=== PATIENT | male | born 1955 | race Caucasian/White ===

== ENCOUNTER → 2019-05-01 | Outpatient (CLI) | payer BC, OTHER ==
[~2019-05-01] MED LIST: HOLD METFORMIN - RECEIVED CONTRAST 20 ML VIAL IV SCH; IOHEXOL 350 MG/ML 100 ML (OMNIPAQUE 350) VIAL IV ONE; NS 100 ML (IVPB) BAG IV ONE
--- NOTE | 2019-05-01 15:04 | Diagnostic Imaging Report ---
PROCEDURE: CT head with and without contrast. TECHNIQUE: Multiple contiguous axial images were obtained through the brain before and after the administration of intravenous contrast. Auto Exposure Controls were utilized during the CT exam to meet ALARA standards for radiation dose reduction. INDICATION: Weakness and dysphasia. COMPARISON: No prior studies are available for comparison. FINDINGS: The ventricles and sulci are appropriate for the patient's age. No sulcal effacement or midline shift is seen. No acute intra-axial or extra-axial hemorrhage is detected. 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 Cisterns are patent. Visualized paranasal sinuses are clear. No abnormal enhancement following contrast administration is identified. IMPRESSION: Essentially unremarkable pre-and postcontrast CT of the brain apart from a probable old lacunar infarct in left thalamus. No acute features are seen. Dictated by: Dictated on workstation # [id number]
== END ==
LOC: RAD 14:26
PROVIDERS: ATTEND Nurse Practitioner Community Health
DX: R47.02 Dysphasia (principal); R29.810 Facial weakness; R53.1 Weakness
CPT/HCPCS: 70470

== ENCOUNTER 2020-12-08 13:30 | Inpatient (IN) | payer MEDICARE ==
[~2020-12-08] VITALS: Ht 187.9 cm; Wt 99.5 kg
--- NOTE | 2020-12-08 13:48 | ED Lower Extremity ---
General Stated Complaint: L FOOT ULCERS Source: patient Exam Limitations: no limitations History of Present Illness Date Seen by Provider: Dec 08, 2020 Time Seen by Provider: 13:46 Initial Comments To ER with ulcers to both of his feet with drainage that has increased "100%" over the past few weeks. No fevers or chills. Follows with [facility]. Has not seen anyone for quite some time though. He has been out of his blood pressure medication for about 2 months as well. He believes he "just needs some Keflex". Onset: just prior to arrival Severity: moderate Pain/Injury Location: left foot Method of Injury: unknown Modifying Factors: Worse With Movement Allergies and Home Medications Allergies Coded Allergies: No Allergy Information Available (Unverified , 05/01/19) Patient Home Medication List Home Medication List Reviewed: Yes Review of Systems Constitutional: see HPI; No chills, No fever EENTM: see HPI Respiratory: no symptoms reported Cardiovascular: no symptoms reported Genitourinary: no symptoms reported Musculoskeletal: see HPI Skin: no symptoms reported Psychiatric/Neurological: No Symptoms Reported Physical Exam Vital Signs Vital Signs - First Documented 12/08/20 13:36 Temp 37.3 Pulse 92 Resp 18 B/P (MAP) 207/120 (149) Pulse Ox 97 O2 Delivery Room Air Capillary Refill : Height, Weight, BMI Height: '" Weight: lbs. oz. kg; BMI Method: General Appearance: WD/WN, no apparent distress Respiratory: no respiratory distress, no accessory muscle use Hips: bilateral hip non-tender, bilateral hip normal inspection, bilateral hip normal range of motion Legs: bilateral leg non-tender, bilateral leg normal inspection, bilateral leg normal range of motion Knees: bilateral knee non-tender, bilateral knee normal inspection, bilateral knee normal range of motion Ankles: bilateral ankle swelling (Bilateral lower extremity thickening of skin, scaling. He has Unna boots on each foot that have been there for quite some time. Incredibly foul-smelling feet. The plantar surface left foot over the arch of the foot has a fissure from the rolled up compression stockings with depth down to plantar fascia) Feet: bilateral foot swelling Neurologic/Psychiatric: alert, normal mood/affect, oriented x 3 Skin: normal color, warm/dry Progress/Results/Core Measures Results/Orders Lab Results Laboratory Tests Test 12/08/20 13:42 12/08/20 13:53 Range/Units Glucometer 173 H 70-110 MG/DL White Blood Count 12.5 H 4.3-11.0 10^3/uL Red Blood Count 3.96 L 4.30-5.52 10^6/uL Hemoglobin 11.8 L 13.3-17.7 g/dL Hematocrit 36 L 40-54 % Mean Corpuscular Volume 90 80-99 fL Mean Corpuscular Hemoglobin 30 25-34 pg Mean Corpuscular Hemoglobin Concent 33 32-36 g/dL Red Cell Distribution Width 14.3 10.0-14.5 % Platelet Count 283 130-400 10^3/uL Mean Platelet Volume 9.8 9.0-12.2 fL Immature Granulocyte % (Auto) 1 % Neutrophils (%) (Auto) 76 H 42-75 % Lymphocytes (%) (Auto) 12 12-44 % Monocytes (%) (Auto) 8 0-12 % Eosinophils (%) (Auto) 3 0-10 % Basophils (%) (Auto) 1 0-10 % Neutrophils # (Auto) 9.6 H 1.8-7.8 X 10^3 Lymphocytes # (Auto) 1.6 1.0-4.0 X 10^3 Monocytes # (Auto) 1.0 0.0-1.0 X 10^3 Eosinophils # (Auto) 0.3 0.0-0.3 10^3/uL Basophils # (Auto) 0.1 0.0-0.1 10^3/uL Immature Granulocyte # (Auto) 0.1 0.0-0.1 10^3/uL Prothrombin Time 13.3 12.2-14.7 SEC INR Comment 1.0 0.8-1.4 Sodium Level 140 135-145 MMOL/L Potassium Level 3.7 3.6-5.0 MMOL/L Chloride Level 107 98-107 MMOL/L Carbon Dioxide Level 24 21-32 MMOL/L Anion Gap 9 5-14 MMOL/L Blood Urea Nitrogen 21 H 7-18 MG/DL Creatinine 1.23 0.60-1.30 MG/DL Estimat Glomerular Filtration Rate 59 BUN/Creatinine Ratio 17 Glucose Level 173 H 70-105 MG/DL Lactic Acid Level 1.71 0.50-2.00 MMOL/L Calcium Level 9.4 8.5-10.1 MG/DL Corrected Calcium 9.7 8.5-10.1 MG/DL Total Bilirubin 0.3 0.1-1.0 MG/DL Aspartate Amino Transf (AST/SGOT) 21 5-34 U/L Alanine Aminotransferase (ALT/SGPT) 25 0-55 U/L Alkaline Phosphatase 72 40-136 U/L B-Type Natriuretic Peptide 36.8 <100.0 PG/ML Total Protein 7.8 6.4-8.2 GM/DL Albumin 3.6 3.2-4.5 GM/DL My Orders Orders - CHANELL ONTIVEROS [employer] Cbc With Automated Diff (12/08/20 13:43) Comprehensive Metabolic Panel (12/08/20 13:43) Protime With Inr (12/08/20 13:43) Ua Culture If Indicated (12/08/20 13:43) Blood Culture (12/08/20 13:43) Lactic Acid Analyzer (12/08/20 13:43) BNP (12/08/20 13:43) Chest 1 View, Ap/Pa Only (12/08/20 13:43) Labetalol Injection (Normodyne Injection (12/08/20 14:00) Foot, Bilateral, 2 Views (12/08/20 13:43) Clonidine Tablet (Catapres Tablet) (12/08/20 15:00) Zosyn 4.5 Gm (One Time Dose) (12/08/20 15:00) Vital Signs/I&O 12/08/20 12/08/20 13:36 14:35 Temp 37.3 Pulse 92 Resp 18 B/P (MAP) 207/120 (149) 188/94 (125) Pulse Ox 97 O2 Delivery Room Air Departure Communication (Admissions) Time/Spoke to Admitting Phy: 14:[address] Mcdermott who agrees to admit. We will consult surgery. I spoke with Dr. Toney from surgery he agrees to consult. I also spoke with Dr. Garcia from wound care who agrees to consult for the right foot which does not seem to be surgical at this point. Impression Primary Impression: Wound of foot Additional Impression: Noncompliance Disposition: ADMITTED INPATIENT Condition: Stable Admissions Decision to Admit Reason: Admit from ER (General) Decision to Admit/Date: Dec 08, 2020 Time/Decision to Admit Time: 14:53 Departure-Patient Inst. Referrals: NO,LOCAL PHYSICIAN (PCP/Family) Primary Care Physician CHANELL ONTIVEROS APRN Dec 08, 2020 13:48
[2020-12-08] MEDS ORDERED: LABETALOL HCL 20 MG/4 ML VIAL IV ONE (14:00)
[2020-12-08 14:08] LABS: BASOPHILS # (AUTO) 0.1 10^3/uL (0.0-0.1); BASOPHILS % (AUTO) 1 % (0-10); EOSINOPHILS # (AUTO) 0.3 10^3/uL (0.0-0.3); EOSINOPHILS % (AUTO) 3 % (0-10); HEMATOCRIT 36 % (40-54); HEMOGLOBIN 11.8 g/dL (13.3-17.7); LYMPHOCYTES # (AUTO) 1.6 X 10^3 (1.0-4.0); LYMPHOCYTES % (AUTO) 12 % (12-44); MEAN CORPUSCULAR HEMOGLOBIN 30 pg (25-34); MEAN CORPUSCULAR HGB CONC 33 g/dL (32-36); MEAN CORPUSCULAR VOLUME 90 fL (80-99); MEAN PLATELET VOLUME 9.8 fL (9.0-12.2); MONOCYTES % (AUTO) 8 % (0-12); NEUTROPHILS # (AUTO) 9.6 X 10^3 (1.8-7.8); NEUTROPHILS % (AUTO) 76 % (42-75); PLATELET COUNT 283 10^3/uL (130-400); WHITE BLOOD COUNT 12.5 10^3/uL (4.3-11.0)
[2020-12-08 14:19] LABS: PROTHROMBIN TIME PATIENT 13.3 SEC (12.2-14.7)
[2020-12-08 14:27] LABS: ALBUMIN 3.6 GM/DL (3.2-4.5); BILIRUBIN,TOTAL 0.3 MG/DL (0.1-1.0); CALCIUM 9.4 MG/DL (8.5-10.1); CREATININE SERUM 1.23 MG/DL (0.60-1.30); POTASSIUM 3.7 MMOL/L (3.6-5.0); TOTAL PROTEIN 7.8 GM/DL (6.4-8.2)
--- NOTE | 2020-12-08 14:52 | Diagnostic Imaging Report ---
INDICATION: Foot wounds. EXAMINATION: Frontal chest obtained at 2:27 PM. FINDINGS: The heart is borderline in size. There is mild central vascular prominence. There is no focal consolidation, pneumothorax, or pleural fluid. IMPRESSION: Borderline heart size with mild central vascular prominence. No focal infiltrate, pneumothorax, or pleural fluid. Dictated by: Dictated on workstation # [id number]
[2020-12-08] MEDS ORDERED: cloNIDine 0.1 MG (CATAPRES) TAB PO ONE (15:00)
[2020-12-08] MEDS ORDERED: PIPERACILLIN/TAZOBACTAM (BULK) 4.5 GM in NS (IVPB) 100 ML IV ONE (15:00)
[2020-12-08 15:07] LABS: BILIRUBIN,URINE NEGATIVE (NEGATIVE); CLARITY,URINE CLEAR; COLOR,URINE YELLOW; GLUCOSE, URINE (UA) NEGATIVE (NEGATIVE); KETONES,URINE NEGATIVE (NEGATIVE); LEUKOCYTE ESTERASE ,URINE TRACE (NEGATIVE); NITRITE,URINE NEGATIVE (NEGATIVE); PROTEIN,URINE TRACE (NEGATIVE)
--- NOTE | 2020-12-08 15:17 | Diagnostic Imaging Report ---
HISTORY: Bilateral feet wounds. COMPARISON: None. TECHNIQUE: Two views of the bilateral feet. FINDINGS: Right foot: There is marked soft tissue swelling about the right foot. There is diffuse osteopenia. Osteopenia appears marked at the fourth and fifth metatarsal heads. No definite cortical erosion is seen. No fracture is seen. Left foot: There is marked soft tissue swelling about the left foot as well, particularly at the dorsum of the forefoot. There is generalized osteopenia, particularly at the metatarsal heads. Questionable erosive changes at the fourth metatarsal head. No fracture is seen. Alignment appears normal. IMPRESSION: 1. Marked soft tissue swelling in the feet bilaterally with diffuse osteopenia. Suspect erosive changes at the fourth metatarsal head which would be concerning for osteomyelitis. MRI would be more sensitive to evaluate for osteomyelitis in the bilateral feet. Dictated by: Dictated on workstation # [id number]
[2020-12-08 15:22] LABS: BACTERIA,URINE NEGATIVE /HPF; RBC,URINE RARE /HPF
[2020-12-08] MEDS ORDERED: LACTATED RINGERS 1,000 ML IV ONE (15:27)
[2020-12-08 15:54] VITALS: BP 177/84
[2020-12-08] MEDS ORDERED: CATHETER FLUSH 10 ML SYR IV PRN (16:00)
[2020-12-08] MEDS ORDERED: VANCOMYCIN 2000 MG/NS 500 ML IVPB IV NR ×2 (16:00)
[2020-12-08] MEDS: LACTATED RINGERS 1,000 ML IV SCH (16:02)
[2020-12-08] MEDS: inSUlin ASPART (NovoLOG) 1 UNIT/0.01 ML (CHARGE PER UNIT) SC SCH ×2 (17:06→20:41)
[2020-12-08] MEDS ORDERED: HYDROcodone/APAP 5 MG/325 MG (LORTAB) TAB PO PRN (17:15)
[2020-12-08] MEDS ORDERED: FLU QUAD HIGH DOSE 240 MCG/0.7 ML 2020-21 (FLUZONE) IM ONE (17:30)
--- NOTE | 2020-12-08 19:22 | Consultation - Surgery ---
History of Present Illness History of Present Illness Patient Consulted On(dianna/time) 12/08/20 19:15 Time Seen by Provider: 16:08 History of Present Illness Surgery asked to consult regarding foot ulcer. HPI per ED: To ER with ulcers to both of his feet with drainage that has increased "100%" over the past few weeks. No fevers or chills. Follows with [facility]. Has not seen anyone for quite some time though. He has been out of his blood pressure medication for about 2 months as well. He believes he "just needs some Keflex". Onset: just prior to arrival Severity: moderate Pain/Injury Location: left foot Method of Injury: unknown Modifying Factors: Worse With Movement Pt states that it hurts to walk on in it and this is the worst it has ever looked. He states he doesn't walk much, but a little. He had a compression sock on his foot that he had rolled up and that is what caused the cut on his foot. He has a hx of lymphedema and states he has been dealing with "little ulcers on my legs for years". He rates his pain as 3 out of 10, but much worse if he tries to walk on it. Allergies and Home Medications Allergies Coded Allergies: No Allergy Information Available (Unverified , 12/08/20) Patient Home Medication List Home Medication List Reviewed: Yes Past Cszrplx-Zmhqeb-Gvygzr Hx Patient Social History Smoking Status: Current Everyday Smoker Alcohol Use?: No Have you traveled recently?: No Surgeries History of Surgeries: Yes Surgeries: Orthopedic Respiratory History of Respiratory Disorde: No Cardiovascular History of Cardiac Disorders: Yes Cardiac Disorders: Hypertension Neurological History of Neurological Disord: No Genitourinary History of Genitourinary Disor: No Gastrointestinal History of Gastrointestinal Di: No Musculoskeletal History of Musculoskeletal Dis: Yes (lymphedema, chronic venous stasis) Endocrine History of Endocrine Disorders: Yes Endocrine Disorders: Diabetes, Insulin dep HEENT History of HEENT Disorders: No Loss of Vision: Denies Hearing Impairment: Denies Cancer History of Cancer: No Psychosocial History of Psychiatric Problem: No Integumentary History of Skin or Integumenta: No Family Medical History Significant Family History: Diabetes (both parents) Review of Systems-General Constitutional: No chills, No diaphoresis; malaise, weakness EENTM: No blurred vision, No double vision, No mouth pain, No mouth swelling, No nose congestion Respiratory: No cough, No dyspnea on exertion, No hemoptysis, No short of breath Cardiovascular: No chest pain Gastrointestinal: No abdominal pain, No jaundice, No nausea, No vomiting Genitourinary: No dysuria, No frequency Musculoskeletal: back pain, joint pain, joint swelling, muscle pain, muscle stiffness, muscle cramps, muscle weakness Skin: dryness, lesions Psychiatric/Neurological: Denies Anxiety, Denies Depressed, Denies Seizure, Denies Tremors Other pt denies any hx of abnormal bleeding or bruising Physical Exam-General Problems Physical Exam Vital Signs Vital Signs - First Documented 12/08/20 13:36 Temp 37.3 Pulse 92 Resp 18 B/P (MAP) 207/120 (149) Pulse Ox 97 O2 Delivery Room Air Capillary Refill : Less Than 3 Seconds General Appearance: no apparent distress, obese Eyes: Bilateral Eye PERRL, Bilateral Eye EOMI HEENT: pharynx normal; No scleral icterus (R), No scleral icterus (L), No pale conjunctivae (R), No pale conjunctivae (L) Neck: supple Respiratory: lungs clear, normal breath sounds, no respiratory distress, no accessory muscle use Cardiovascular: regular rate, rhythm, no murmur Gastrointestinal: non tender, soft, no organomegaly, no pulsatile mass Rectal: deferred Extremities: other (B/L Lymphedema with chronic skin changes, thickend bark- like skin from below knees through feet, right leg above ankle has open ulcers. Right foot is twice normal size. Left foot has a laceration, straight line going through plantar and medial aspect,that looks like it was done with wire. It also looks chronic.) Neurologic/Psychiatric: alert, normal mood/affect, oriented x 3 Skin: normal color, warm/dry Lymphatic: no adenopathy (neck, axilla or groin) Data Review Labs Laboratory Tests 12/08/20 13:42: Glucometer 173H 12/08/20 13:53: White Blood Count 12.5H, Red Blood Count 3.96L, Hemoglobin 11.8L, Hematocrit 36L , Mean Corpuscular Volume 90, Mean Corpuscular Hemoglobin 30, Mean Corpuscular Hemoglobin Concent 33, Red Cell Distribution Width 14.3, Platelet Count 283, Mean Platelet Volume 9.8, Immature Granulocyte % (Auto) 1, Neutrophils (%) (Auto) 76H, Lymphocytes (%) (Auto) 12, Monocytes (%) (Auto) 8, Eosinophils (%) (Auto) 3, Basophils (%) (Auto) 1, Neutrophils # (Auto) 9.6H, Lymphocytes # (Auto) 1.6, Monocytes # (Auto) 1.0, Eosinophils # (Auto) 0.3, Basophils # (Auto) 0.1, Immature Granulocyte # (Auto) 0.1, Prothrombin Time 13.3, INR Comment 1.0, Sodium Level 140, Potassium Level 3.7, Chloride Level 107, Carbon Dioxide Level 24, Anion Gap 9, Blood Urea Nitrogen 21H, Creatinine 1.23, Estimat Glomerular Filtration Rate 59, BUN/Creatinine Ratio 17, Glucose Level 173H, Lactic Acid Level 1.71, Calcium Level 9.4, Corrected Calcium 9.7, Total Bilirubin 0.3, Aspartate Amino Transf (AST/SGOT) 21, Alanine Aminotransferase (ALT/SGPT) 25, Alkaline Phosphatase 72, B-Type Natriuretic Peptide 36.8, Total Protein 7.8, Albumin 3.6 12/08/20 14:59: Urine Color YELLOW, Urine Clarity CLEAR, Urine pH 5.0, Urine Specific [place] 1.020, Urine Protein TRACEH, Urine Glucose (UA) NEGATIVE, Urine Ketones NEGATIVE, Urine Nitrite NEGATIVE, Urine Bilirubin NEGATIVE, Urine Urobilinogen 1.0, Urine Leukocyte Esterase TRACEH, Urine RBC (Auto) 1+H, Urine RBC RARE, Urine WBC 2-5, Urine Squamous Epithelial Cells NONE, Urine Crystals NONE, Urine Bacteria NEGATIVE, Urine Casts NONE, Urine Mucus NEGATIVE, Urine Culture Indicated NO 12/08/20 16:41: Glucometer 142H Radiology Date of Exam:12/08/20 FOOT, BILATERAL, 2 VIEWS HISTORY: Bilateral feet wounds. COMPARISON: None. TECHNIQUE: Two views of the bilateral feet. FINDINGS: Right foot: There is marked soft tissue swelling about the right foot. There is diffuse osteopenia. Osteopenia appears marked at the fourth and fifth metatarsal heads. No definite cortical erosion is seen. No fracture is seen. Left foot: There is marked soft tissue swelling about the left foot as well, particularly at the dorsum of the forefoot. There is generalized osteopenia, particularly at the metatarsal heads. Questionable erosive changes at the fourth metatarsal head. No fracture is seen. Alignment appears normal. IMPRESSION: 1. Marked soft tissue swelling in the feet bilaterally with diffuse osteopenia. Suspect erosive changes at the fourth metatarsal head which would be concerning for osteomyelitis. MRI would be more sensitive to evaluate for osteomyelitis in the bilateral feet. Dictated by: Dictated on workstation # [id number] Dict: 12/08/20 1507 Trans: 12/08/20 1533 [id number] Interpreted by: LION SHOOK MD Electronically signed by: LION SHOOK MD 12/08/20 1533 Assessment/Plan Assessment/Plan Assessment/Plan B/L Lymphedema Laceration of left foot B/L ulcers both feet Rule Out Osteomyelitis of Left foot Plan is to start local wound care (Wound Team consulted), IV fluids, IV ABX and probably will need to order MRI of feet. I did mention to pt that if he had Osteomyelitis; amputation may be necessary. Will await full work-up. TESHA LEDEZMA DO Dec 08, 2020 19:22
[2020-12-08 20:09] VITALS: BP 174/81
[2020-12-08] MEDS: PIPERACILLIN/TAZO 4.5 GM/NS 100 ML IV SCH ×2 (20:58)
[2020-12-08 23:37] VITALS: BP 154/78
[2020-12-09] MEDS: LACTATED RINGERS 1,000 ML IV SCH ×3 (01:01→16:14)
[2020-12-09 03:54] VITALS: BP 160/78
[2020-12-09] MEDS: VANCOMYCIN 1500 MG/NS 500 ML IVPB IV SCH ×4 (03:54→16:15)
[2020-12-09] MEDS: PIPERACILLIN/TAZO 4.5 GM/NS 100 ML IV SCH ×6 (05:02→20:22)
[2020-12-09] MEDS: inSUlin ASPART (NovoLOG) 1 UNIT/0.01 ML (CHARGE PER UNIT) SC SCH ×4 (05:08→21:59)
[2020-12-09 07:34] VITALS: BP 162/76
--- NOTE | 2020-12-09 08:48 | Progress Note - Surgery ---
CHANELL RAMIREZ MED STUDENT 12/09/20 0848: Subjective Date Seen by a Provider: Dec 09, 2020 Time Seen by a Provider: 08:00 Subjective/Events-last exam Rhett states his LE swelling has decreased. Reports he is not having much pain. The patient does state his lungs have been "rattling" from the IV fluids, which annoys him although he does not feel SOB. The pt states he has taken a water pill "off and on" in the past. He states he does not lie flat at home because it is uncomfortable for him, but says he does not get short of breath. The patient denies nausea, vomiting, chest pain, and abdominal pain. Focused Exam Lactate Level 12/08/20 13:53: Lactic Acid Level 1.71 Objective Exam Vital Signs Date Time Temp Pulse Resp B/P (MAP) Pulse Ox O2 Delivery O2 Flow Rate FiO2 12/09/20 08:08 Room Air 12/09/20 07:34 36.6 60 20 162/76 (104) 92 Room Air 12/09/20 03:54 36.5 60 20 160/78 (105) 97 Room Air 12/08/20 23:37 36.7 68 20 154/78 (103) 96 Room Air 12/08/20 20:55 Room Air 12/08/20 20:09 36.4 63 20 174/81 (112) 96 Room Air 12/08/20 15:54 36.3 73 20 177/84 (115) 94 Room Air 12/08/20 15:15 Room Air 12/08/20 15:14 81 18 182/90 98 Room Air 12/08/20 14:35 188/94 (125) 12/08/20 13:36 37.3 92 18 207/120 (149) 97 Room Air I & O 12/09/20 07:00 Intake Total 2750 ml Output Total 2700 ml Balance 50 ml Capillary Refill : Less Than 3 Seconds General Appearance: No Apparent Distress, Obese HEENT: PERRL/EOMI Neck: Normal Inspection; No JVD Respiratory: Chest Non Tender, No Accessory Muscle Use, No Respiratory Distress; No Crackles; Wheezing (expiratory), Other (somewhat coarse breath sounds. ) Cardiovascular: Regular Rate, Rhythm, No JVD Gastrointestinal: non tender, soft Extremity: Swelling, Other (BL LE scaling and edema to the knees. Pedal edema appears decreased on the left compared to yesterday but still significant. partially circumferential scar at left midfoot appears unchanged compared to yesterday, no surrounding erythema ) Skin: Warm/Dry Results Lab Laboratory Tests 12/08/20 13:42: Glucometer 173H 12/08/20 13:53: White Blood Count 12.5H, Red Blood Count 3.96L, Hemoglobin 11.8L, Hematocrit 36L , Mean Corpuscular Volume 90, Mean Corpuscular Hemoglobin 30, Mean Corpuscular Hemoglobin Concent 33, Red Cell Distribution Width 14.3, Platelet Count 283, Mean Platelet Volume 9.8, Immature Granulocyte % (Auto) 1, Neutrophils (%) (Auto) 76H, Lymphocytes (%) (Auto) 12, Monocytes (%) (Auto) 8, Eosinophils (%) (Auto) 3, Basophils (%) (Auto) 1, Neutrophils # (Auto) 9.6H, Lymphocytes # (Auto) 1.6, Monocytes # (Auto) 1.0, Eosinophils # (Auto) 0.3, Basophils # (Auto) 0.1, Immature Granulocyte # (Auto) 0.1, Prothrombin Time 13.3, INR Comment 1.0, Sodium Level 140, Potassium Level 3.7, Chloride Level 107, Carbon Dioxide Level 24, Anion Gap 9, Blood Urea Nitrogen 21H, Creatinine 1.23, Estimat Glomerular Filtration Rate 59, BUN/Creatinine Ratio 17, Glucose Level 173H, Lactic Acid Level 1.71, Calcium Level 9.4, Corrected Calcium 9.7, Total Bilirubin 0.3, Aspartate Amino Transf (AST/SGOT) 21, Alanine Aminotransferase (ALT/SGPT) 25, Alkaline Phosphatase 72, B-Type Natriuretic Peptide 36.8, Total Protein 7.8, Albumin 3.6 12/08/20 14:59: Urine Color YELLOW, Urine Clarity CLEAR, Urine pH 5.0, Urine Specific [place] 1.020, Urine Protein TRACEH, Urine Glucose (UA) NEGATIVE, Urine Ketones NEGATIVE, Urine Nitrite NEGATIVE, Urine Bilirubin NEGATIVE, Urine Urobilinogen 1.0, Urine Leukocyte Esterase TRACEH, Urine RBC (Auto) 1+H, Urine RBC RARE, Urine WBC 2-5, Urine Squamous Epithelial Cells NONE, Urine Crystals NONE, Urine Bacteria NEGATIVE, Urine Casts NONE, Urine Mucus NEGATIVE, Urine Culture Indicated NO 12/08/20 16:41: Glucometer 142H 12/08/20 20:14: Glucometer 155H 12/09/20 05:03: Glucometer 126H Assessment/Plan Assessment/Plan Assessment/Plan B/L Lymphedema Laceration of left foot B/L ulcers both feet Rule Out Osteomyelitis of Left foot Plan is to start local wound care (Wound Team consulted), IV fluids, IV ABX and probably will need to order MRI of feet. I did mention to pt that if he had Osteomyelitis; amputation may be necessary. Will await full work-up. Dr. Jones to assess the patient this afternoon. Repeat CMP due to patient's respiratory concerns - sounds like early CHF s ymptoms. Admission CXR showed borderline heart size. Lungs have expiratory wheeze and some coarse breath sounds but no crackles He stated he has used a water pill "off and on" in the past. Start patient on 20mg Lasix with KCl Do not think CXR necessary unless symptoms persist after a day of lasix use. JOSE C TONEY DO 12/09/20 1600: Subjective Time Seen by a Provider: 12:48 Subjective/Events-last exam Pt seen and examined, states he thinks he is doing better. Denies pain and states swelling is less. Review of Systems General: No Chills, No Night Sweats Pulmonary: No Dyspnea, No Cough Cardiovascular: No: Chest Pain, Palpitations Gastrointestinal: No: Nausea, Vomiting, Abdominal Pain Objective Exam General Appearance: No Apparent Distress, Obese Respiratory: Chest Non Tender, No Accessory Muscle Use, No Respiratory Distress; No Crackles; Wheezing (expiratory), Other (somewhat coarse breath sounds. ) Cardiovascular: Regular Rate, Rhythm, No JVD Gastrointestinal: non tender, soft Extremity: Swelling, Other (BL LE scaling and edema to the knees. Pedal edema appears decreased on the left compared to yesterday but still significant. partially circumferential scar at left midfoot appears milk drier compared to yesterday (possibly starting to scab), no surrounding erythema ) Assessment/Plan Assessment/Plan Assessment/Plan B/L Lymphedema Laceration of left foot B/L ulcers both feet Rule Out Osteomyelitis of Left foot Plan is to start local wound care (Wound Team consulted), IV fluids, IV ABX and probably will need to order MRI of feet. I did mention to pt that if he had Osteomyelitis; amputation may be necessary. Will await full work-up. Dr. Jones to assess the patient this afternoon. Repeat CMP due to patient's respiratory concerns - sounds like early CHF symptoms. Admission CXR showed borderline heart size. Lungs have expiratory wheeze and some coarse breath sounds but no crackles He stated he has used a water pill "off and on" in the past. Start patient on 20mg Lasix with KCl Do not think CXR necessary unless symptoms persist after a day of lasix use. Supervisory-Addendum Brief Verification & Attestation Participated in pt care: history, MDM, physical Personally performed: exam, history, MDM Care discussed with: Medical Student Procedures: n/a Verification and Attestation of Medical Student E/M Service A medical student performed and documented this service. I then reviewed and verified all information documented by the medical student and made modifications to such information, when appropriate. I personally performed a physical exam, medical decision making and then discussed any differences between the notes and made revisions as necessary to create one note. Jose C Toney , 12/09/20 , 16:00 CHANELL RAMIREZ MED STUDENT Dec 09, 2020 08:48 JOSE C TONEY DO Dec 09, 2020 16:00
[2020-12-09] MEDS ORDERED: amLODIPine 5 MG (NORVASC) TAB PO SCH (09:00)
[2020-12-09] MEDS ORDERED: OMEG-109 PO (11:22)
[2020-12-09] MEDS ORDERED: IBUP-2185 PO (11:22)
[2020-12-09] MEDS ORDERED: ASCO500T17 PO (11:22)
[2020-12-09] MEDS ORDERED: LISI20TA26 PO (11:22)
[2020-12-09] MEDS ORDERED: NAPR220C11 PO (11:22)
[2020-12-09] MEDS ORDERED: AMLO-251 PO (11:22)
[2020-12-09] MEDS ORDERED: INSU100V31 IJ (11:22)
[2020-12-09 11:35] VITALS: BP 169/79
[2020-12-09 16:09] VITALS: BP 169/76
--- NOTE | 2020-12-09 17:25 | Wound Care Assessment ---
Wound Care Assessment Date Seen by Provider: Dec 09, 2020 Time Seen by Provider: 17:00 Chief Complaint Bilateral lower extremity swelling and ulcers. HPI The patient is a 65 year old male with bilateral lower extremity edema and cellulitis in a setting of diabetes, sedentary life-style, obesity, lymphedema, venous insufficiency, and neglect. He has been wearing constricting knee braces, which have contributed to the swelling. He has a circumferential pressure injury L mid-foot due to CELESTE hose. There is a 3 cm pressure injury of L medial heel, of uncertain cause. He has extensive acanthosis nigricans of both feet, probably due to poorly controlled glucose levels in the past. He has changes of chronic lymphedema of both legs. There is a R anterior calf ulcer, probably of combined lymphedema and venous etiology. Arterial evaluation is delayed due to pain with manipulation of both legs. Past Medical History: Admits Diabetes Type II, Admits Heart Disease Smoking Status: Current Everyday Smoker Recreational Drug Use: No Alcohol Use: Denies Use Review of Systems Pulmonary: No Dyspnea Cardiovascular: No: Chest Pain Exam Vital Signs Date Time Temp Pulse Resp B/P (MAP) Pulse Ox O2 Delivery O2 Flow Rate FiO2 12/09/20 16:09 36.6 63 18 169/76 (107) 95 Room Air Capillary Refill : Less Than 3 Seconds Extremities: other (L mid-foot -- circumferential slough 20 x 1 cm, consistent with constricting band; L medial heel --- 3 x 3 cm ulcer with base of slough; R anterior claf ulcer with surrounding inflammation.) Results Laboratory Tests 12/08/20 20:14: Glucometer 155H 12/09/20 05:03: Glucometer 126H 12/09/20 09:35: 12/09/20 11:37: Glucometer 162H 12/09/20 15:32: Glucometer 196H Microbiology 12/08/20 Blood Culture - Preliminary, Resulted No growth Microbiology 12/08/20 Blood Culture - Preliminary, Resulted No growth 12/08/20 Blood Culture - Preliminary, Resulted No growth Assessment/Plan/Dx 1. Pressure ulcer, L mid-foot, unstageable, from constricting band. 2. Pressure ulcer, L medial heel, uncertain cause. 3. R anterior calf ulcer, probably combined venous and lymphedema. 4. Diabetes, uncertain control. 5. R/O LE arterial insufficiency. Plan: Dressings ordered. Patient urged to remove and not replace knee braces. Elevation. When comfort allows, would recommend obtaining segmental arterial pressures with toe pressures. MAGDI BARBER MD Dec 09, 2020 17:25
[2020-12-09] MEDS ORDERED: GADOBUTROL 15 MMOL/15 ML (GADAVIST) VIAL IV ONE (18:00)
--- NOTE | 2020-12-09 18:12 | History & Physical ---
HPI History of Present Illness: 65 yo M with long standing DM and venous insufficiency that presented with bilateral LE pain. Patient states that he has had Kinsey boots on his legs bilaterally for around 6 weeks and has not had them changed due to worries about Covid and him switching providers. States that his DM has been well controlled but not sure what his last A1c was. States that several week ago he started having pain in his foot with ambulation but then the pain stopped and he did not seek care. Has not been seen in a wound care clinic in a long time was following with Balbir Rodrigues for Kinsey boots. Source: patient, other (Son) Exam Limitations: no limitations Date seen by provider: Dec 09, 2020 Time Seen by Provider: 11:00 Attending Physician Nelson Mcdermott MD PCP No,Local Physician Consult Date of Admission Dec 08, 2020 at 14:47 Home Medications Home Medications Reviewed patient Home Medication Reconciliation performed by pharmacy medication reconciliations windmill technician and/or nursing. Patients Allergies have been reviewed. Allergies Coded Allergies: No Allergy Information Available (Unverified , 12/08/20) ZIO-[id number]-Wzjbsq Hx Patient Social History Living Status: Lives at home alone Smoking Status: Current Everyday Smoker Alcohol Use?: No Tobacco type used: Cigarettes Have you traveled recently?: No Past Medical History IDDM HTN Chronic Lymph Edema bilateral LE Family Medical History Significant Family History: Diabetes (both parents) Review of Systems ([facility]) Constitutional: no symptoms reported; No chills, No fever EENTM: no symptoms reported; No mouth pain, No nose congestion, No nose pain Respiratory: cough, dyspnea on exertion Cardiovascular: no symptoms reported; No chest pain, No palpitations Gastrointestinal: no symptoms reported; No abdominal pain, No constipation, No diarrhea, No nausea, No vomiting Genitourinary: no symptoms reported; No dysuria, No frequency, No hematuria Musculoskeletal: muscle pain, muscle stiffness Skin: change in color, dryness, lesions Psychiatric/Neurological: No Symptoms Reported; Denies Anxiety, Denies Depressed Reviewed Test Results Reviewed Test Results Lab Laboratory Tests Test 12/08/20 13:42 12/08/20 13:53 12/08/20 14:59 12/08/20 16:41 Range/Units Glucometer 173 H 142 H 70-110 MG/DL White Blood Count 12.5 H 4.3-11.0 10^3/uL Red Blood Count 3.96 L 4.30-5.52 10^6/uL Hemoglobin 11.8 L 13.3-17.7 g/dL Hematocrit 36 L 40-54 % Mean Corpuscular Volume 90 80-99 fL Mean Corpuscular Hemoglobin 30 25-34 pg Mean Corpuscular Hemoglobin Concent 33 32-36 g/dL Red Cell Distribution Width 14.3 10.0-14.5 % Platelet Count 283 130-400 10^3/uL Mean Platelet Volume 9.8 9.0-12.2 fL Immature Granulocyte % (Auto) 1 % Neutrophils (%) (Auto) 76 H 42-75 % Lymphocytes (%) (Auto) 12 12-44 % Monocytes (%) (Auto) 8 0-12 % Eosinophils (%) (Auto) 3 0-10 % Basophils (%) (Auto) 1 0-10 % Neutrophils # (Auto) 9.6 H 1.8-7.8 X 10^3 Lymphocytes # (Auto) 1.6 1.0-4.0 X 10^3 Monocytes # (Auto) 1.0 0.0-1.0 X 10^3 Eosinophils # (Auto) 0.3 0.0-0.3 10^3/uL Basophils # (Auto) 0.1 0.0-0.1 10^3/uL Immature Granulocyte # (Auto) 0.1 0.0-0.1 10^3/uL Prothrombin Time 13.3 12.2-14.7 SEC INR Comment 1.0 0.8-1.4 Sodium Level 140 135-145 MMOL/L Potassium Level 3.7 3.6-5.0 MMOL/L Chloride Level 107 98-107 MMOL/L Carbon Dioxide Level 24 21-32 MMOL/L Anion Gap 9 5-14 MMOL/L Blood Urea Nitrogen 21 H 7-18 MG/DL Creatinine 1.23 0.60-1.30 MG/DL Estimat Glomerular Filtration Rate 59 BUN/Creatinine Ratio 17 Glucose Level 173 H 70-105 MG/DL Lactic Acid Level 1.71 0.50-2.00 MMOL/L Calcium Level 9.4 8.5-10.1 MG/DL Corrected Calcium 9.7 8.5-10.1 MG/DL Total Bilirubin 0.3 0.1-1.0 MG/DL Aspartate Amino Transf (AST/SGOT) 21 5-34 U/L Alanine Aminotransferase (ALT/SGPT) 25 0-55 U/L Alkaline Phosphatase 72 40-136 U/L B-Type Natriuretic Peptide 36.8 <100.0 PG/ML Total Protein 7.8 6.4-8.2 GM/DL Albumin 3.6 3.2-4.5 GM/DL Urine Color YELLOW Urine Clarity CLEAR Urine pH 5.0 5-9 Urine Specific [place] 1.020 1.016-1.022 Urine Protein TRACE H NEGATIVE Urine Glucose (UA) NEGATIVE NEGATIVE Urine Ketones NEGATIVE NEGATIVE Urine Nitrite NEGATIVE NEGATIVE Urine Bilirubin NEGATIVE NEGATIVE Urine Urobilinogen 1.0 < = 1.0 MG/DL Urine Leukocyte Esterase TRACE H NEGATIVE Urine RBC (Auto) 1+ H NEGATIVE Urine RBC RARE /HPF Urine WBC 2-5 /HPF Urine Squamous Epithelial Cells NONE /HPF Urine Crystals NONE /LPF Urine Bacteria NEGATIVE /HPF Urine Casts NONE /LPF Urine Mucus NEGATIVE /LPF Urine Culture Indicated NO Test 12/08/20 20:14 12/09/20 05:03 12/09/20 09:35 12/09/20 11:37 Range/Units Glucometer 155 H 126 H 162 H 70-110 MG/DL Test 12/09/20 15:32 Range/Units Glucometer 196 H 70-110 MG/DL Radiology Date of Exam:12/08/20 FOOT, BILATERAL, 2 VIEWS HISTORY: Bilateral feet wounds. COMPARISON: None. TECHNIQUE: Two views of the bilateral feet. FINDINGS: Right foot: There is marked soft tissue swelling about the right foot. There is diffuse osteopenia. Osteopenia appears marked at the fourth and fifth metatarsal heads. No definite cortical erosion is seen. No fracture is seen. Left foot: There is marked soft tissue swelling about the left foot as well, particularly at the dorsum of the forefoot. There is generalized osteopenia, particularly at the metatarsal heads. Questionable erosive changes at the fourth metatarsal head. No fracture is seen. Alignment appears normal. IMPRESSION: 1. Marked soft tissue swelling in the feet bilaterally with diffuse osteopenia. Suspect erosive changes at the fourth metatarsal head which would be concerning for osteomyelitis. MRI would be more sensitive to evaluate for osteomyelitis in the bilateral feet. Dictated by: Dictated on workstation # [id number] Dict: 12/08/20 1507 Trans: 12/08/20 1533 [id number] [id number] Interpreted by: LION SHOOK MD Electronically signed by: LION SHOOK MD 12/08/20 3475 Physical Exam-([facility]) Physical Exam Vital Signs VS - Last 72 Hours, by Label 12/08/20 12/08/20 12/08/20 12/08/20 13:36 14:35 15:14 15:15 Temp 37.3 Pulse 92 81 Resp 18 18 B/P (MAP) 207/120 (149) 188/94 (125) 182/90 Pulse Ox 97 98 O2 Delivery Room Air Room Air Room Air 12/08/20 12/08/20 12/08/20 12/08/20 15:54 20:09 20:55 23:37 Temp 36.3 36.4 36.7 Pulse 73 63 68 Resp 20 20 20 B/P (MAP) 177/84 (115) 174/81 (112) 154/78 (103) Pulse Ox 94 96 96 O2 Delivery Room Air Room Air Room Air Room Air 12/09/20 12/09/20 12/09/20 12/09/20 03:54 07:34 08:08 11:35 Temp 36.5 36.6 36.8 Pulse 60 60 62 Resp 20 20 20 B/P (MAP) 160/78 (105) 162/76 (104) 169/79 (109) Pulse Ox 97 92 92 O2 Delivery Room Air Room Air Room Air Room Air 12/09/20 16:09 Temp 36.6 Pulse 63 Resp 18 B/P (MAP) 169/76 (107) Pulse Ox 95 O2 Delivery Room Air Capillary Refill : Less Than 3 Seconds General Appearance: WD/WN, no apparent distress HEENT: PERRL/EOMI Neck: non-tender, full range of motion, supple Respiratory: chest non-tender, normal breath sounds, no respiratory distress, no accessory muscle use, wheezing Cardiovascular: regular rate, rhythm, no murmur Gastrointestinal: normal bowel sounds, non tender, soft, no organomegaly Back: no CVA tenderness, no vertebral tenderness Extremities: normal range of motion, non-tender, pedal edema (2+ pitting edema, severe skin changes with deep fissures to feet bilaterally, multiple draining wound with erythema, thickened skin and nails, dry skin up to knees) Neurologic/Psychiatric: claims service representative II-XII nml as tested, alert, normal mood/affect, oriented x 3 Lymphatic: no adenopathy Assessment/Plan Assessment/Plan Admission Status: Inpatient Order (span 2 midnights) Reason for Inpatient Admission: Patient needing IV antibiotics and specialist care (1) Cellulitis of both feet Status: Acute Assessment & Plan: - Started on Vanc/Zosyn D2, cultures pending, elevate LE (2) Lymphedema due to chronic inflammation Status: Chronic (3) Uncontrolled diabetes mellitus Status: Chronic Assessment & Plan: - A1c pending, DM nurse education, SSI, Accucheck AC/HS, ADA diet Qualifiers: Qualified Codes: E11.65 - Type 2 diabetes mellitus with hyperglycemia (4) Insulin dependent diabetes mellitus with peripheral circulatory complication Status: Chronic (5) HTN (hypertension) Status: Chronic Assessment & Plan: - Restart home meds Qualifiers: Qualified Codes: I10 - Essential (primary) hypertension (6) Normocytic anemia Status: Acute Assessment & Plan: - Will get Hemoccult (7) DVT prophylaxis Status: Acute Assessment & Plan: - NELSON Julio MD Dec 09, 2020 18:12
[2020-12-09 20:14] VITALS: BP 174/78
[2020-12-09 23:50] VITALS: BP 166/77
[2020-12-10] MEDS ORDERED: TROUGH ORDER-PHARMACY XX NR (03:00)
[2020-12-10 03:30] VITALS: BP 188/87
[2020-12-10] MEDS: LACTATED RINGERS 1,000 ML IV SCH ×2 (03:32→09:54)
[2020-12-10 03:39] LABS: BASOPHILS # (AUTO) 0.1 10^3/uL (0.0-0.1); BASOPHILS % (AUTO) 1 % (0-10); EOSINOPHILS # (AUTO) 0.4 10^3/uL (0.0-0.3); EOSINOPHILS % (AUTO) 4 % (0-10); HEMATOCRIT 32 % (40-54); HEMOGLOBIN 10.5 g/dL (13.3-17.7); LYMPHOCYTES # (AUTO) 1.7 10^3/uL (1.0-4.0); LYMPHOCYTES % (AUTO) 16 % (12-44); MEAN CORPUSCULAR HEMOGLOBIN 30 pg (25-34); MEAN CORPUSCULAR HGB CONC 33 g/dL (32-36); MEAN CORPUSCULAR VOLUME 90 fL (80-99); MEAN PLATELET VOLUME 9.4 fL (9.0-12.2); MONOCYTES # (AUTO) 0.8 10^3/uL (0.0-1.0); MONOCYTES % (AUTO) 8 % (0-12); NEUTROPHILS # (AUTO) 7.2 10^3/uL (1.8-7.8); NEUTROPHILS % (AUTO) 71 % (42-75); PLATELET COUNT 222 10^3/uL (130-400); WHITE BLOOD COUNT 10.1 10^3/uL (4.3-11.0)
[2020-12-10 03:50] LABS: POTASSIUM 3.3 MMOL/L (3.6-5.0)
[2020-12-10 03:52] LABS: CALCIUM 8.4 MG/DL (8.5-10.1)
[2020-12-10 03:56] LABS: CREATININE SERUM 1.32 MG/DL (0.60-1.30)
[2020-12-10] MEDS ORDERED: NS (IVPB) 250 ML ONE (04:23)
[2020-12-10] MEDS ORDERED: VANCOMYCIN 500 MG/VIAL IV ONE (04:23)
[2020-12-10] MEDS ORDERED: VANCOMYCIN 750 MG/VIAL IV ONE (04:23)
[2020-12-10] MEDS: VANCOMYCIN 1250 MG/NS 250 ML IVPB IV SCH ×4 (04:40→17:14)
[2020-12-10] MEDS: inSUlin ASPART (NovoLOG) 1 UNIT/0.01 ML (CHARGE PER UNIT) SC SCH ×4 (05:03→21:10)
[2020-12-10] MEDS: PIPERACILLIN/TAZO 4.5 GM/NS 100 ML IV SCH ×6 (05:18→21:10)
--- NOTE | 2020-12-10 07:48 | Progress Note - Surgery ---
CHANELL RAMIREZ MED STUDENT 12/10/20 0748: Subjective Date Seen by a Provider: Dec 10, 2020 Time Seen by a Provider: 06:50 Subjective/Events-last exam Rhett states he is feeling better today. Says breathing feels less "rattley", legs feel less swollen and are less painful. RN found bedbugs on patient's home CPAP device brought in by the patient's son. Patient denies fever, chills, CP, SOB, nausea, vomiting, abdominal pain. Focused Exam Lactate Level 12/08/20 13:53: Lactic Acid Level 1.71 Objective Exam Vital Signs Date Time Temp Pulse Resp B/P (MAP) Pulse Ox O2 Delivery O2 Flow Rate FiO2 12/10/20 03:30 36.3 84 20 188/87 (120) 94 Room Air 12/09/20 23:50 36.7 87 20 166/77 (106) 94 Room Air 12/09/20 20:25 Room Air 12/09/20 20:14 37.0 65 20 174/78 (110) 96 Room Air 12/09/20 16:09 36.6 63 18 169/76 (107) 95 Room Air 12/09/20 11:35 36.8 62 20 169/79 (109) 92 Room Air 12/09/20 08:08 Room Air I & O 12/10/20 07:00 Intake Total 1537 ml Output Total 4550 ml Balance -3013 ml Capillary Refill : Less Than 3 Seconds General Appearance: No Apparent Distress, Obese HEENT: PERRL/EOMI Neck: Normal Inspection; No JVD Respiratory: Chest Non Tender, No Accessory Muscle Use, No Respiratory Distress; No Crackles; Wheezing (significantly improved compared to yesterday) Cardiovascular: Regular Rate, Rhythm, No JVD Gastrointestinal: non tender, soft, no organomegaly Extremity: Swelling, Other (BL LE scaling and edema to the knees. Left and right feet wrapped in gauze. ) Skin: Warm/Dry Results Lab Laboratory Tests 12/09/20 09:35: Mean Blood Glucose 111, Hemoglobin A1c 5.5 12/09/20 11:37: Glucometer 162H 12/09/20 15:32: Glucometer 196H 12/09/20 21:59: Glucometer 168H 12/10/20 03:20: White Blood Count 10.1, Red Blood Count 3.55L, Hemoglobin 10.5L, Hematocrit 32L, Mean Corpuscular Volume 90, Mean Corpuscular Hemoglobin 30, Mean Corpuscular Hemoglobin Concent 33, Red Cell Distribution Width 13.7, Platelet Count 222, Mean Platelet Volume 9.4, Immature Granulocyte % (Auto) 1, Neutrophils (%) (Auto) 71, Lymphocytes (%) (Auto) 16, Monocytes (%) (Auto) 8, Eosinophils (%) (Auto) 4, Basophils (%) (Auto) 1, Neutrophils # (Auto) 7.2, Lymphocytes # (Auto) 1.7, Monocytes # (Auto) 0.8, Eosinophils # (Auto) 0.4H, Basophils # (Auto) 0.1, Immature Granulocyte # (Auto) 0.1, Sodium Level 140, Potassium Level 3.3L, Chloride Level 106, Carbon Dioxide Level 23, Anion Gap 11, Blood Urea Nitrogen 16, Creatinine 1.32H, Estimat Glomerular Filtration Rate 54, BUN/Creatinine Ratio 12, Glucose Level 143H, Calcium Level 8.4L, Vancomycin Level Trough 20.7H Microbiology 12/08/20 Blood Culture - Preliminary, Resulted No growth Assessment/Plan Assessment/Plan Assessment/Plan B/L Lymphedema Laceration of left foot B/L ulcers both feet Rule Out Osteomyelitis of Left foot Plan is to start local wound care (Wound Team consulted), IV fluids, IV ABX. MRI completed yesterday but am not able to see the images yet; radiology read not yet done. amputation may be necessary if osteomyelitis. Will await full work-up. Dr. Jones assessed the patient and plans on assessing segmental artery pressures with toe pressures. patient did not receive diuretic yesterday but did urinate 4.6L, input only 2.5L lungs sound significantly better, patient's sx have improved hypokalemia supplement 20mg KCl QD repeat CMP in 2 days JOSE C TONEY DO 12/10/20 1338: Subjective Time Seen by a Provider: 09:59 Subjective/Events-last exam Pt seen and examined, states he is doing ok and no complaints. Review of Systems General: No Night Sweats; Fatigue Pulmonary: No Dyspnea; Cough Cardiovascular: No: Chest Pain, Palpitations Gastrointestinal: No: Nausea, Vomiting, Abdominal Pain Objective Exam General Appearance: No Apparent Distress, Obese HEENT: PERRL/EOMI Respiratory: Chest Non Tender, No Accessory Muscle Use, No Respiratory Distress; No Crackles; Wheezing (significantly improved compared to yesterday) Cardiovascular: Regular Rate, Rhythm, No JVD Gastrointestinal: non tender, soft, no organomegaly Extremity: Swelling, Other (BL LE scaling and edema to the knees. Left and right feet wrapped in gauze. ) Assessment/Plan Assessment/Plan Assessment/Plan B/L Lymphedema Laceration of left foot B/L ulcers both feet MRI does not show any Osteomyelitis of Left foot Hypokalemia - supplement 20mg KCl QD, repeat CMP in 2 days Plan continue local wound care (Wound Team consulted), IV fluids, IV ABX. Does not appear at this time that pt will need an amputation; will wait to see if he will need any surgical debridement. patient with good urine output 4.6L yesterday, input only 2.5L, lungs sound significantly better, patient's sx have improved Supervisory-Addendum Brief Verification & Attestation Participated in pt care: history, MDM, physical Personally performed: exam, history, MDM Care discussed with: Medical Student Procedures: n/a Verification and Attestation of Medical Student E/M Service A medical student performed and documented this service. I then reviewed and verified all information documented by the medical student and made modifications to such information, when appropriate. I personally performed a physical exam, medical decision making and then discussed any differences between the notes and made revisions as necessary to create one note. Jose C Toney , 12/10/20 , 13:38 CHANELL RAMIREZ MED STUDENT Dec 10, 2020 07:48 JOSE C TONEY DO Dec 10, 2020 13:38
[2020-12-10] MEDS: lisINopril 20 MG (PRINIVIL) TABLET PO SCH (08:00)
[2020-12-10] MEDS: amLODIPine 10 MG (NORVASC) TAB PO SCH (08:00)
[2020-12-10 08:19] VITALS: BP 184/86
[2020-12-10] MEDS ORDERED: amLODIPine 5 MG (NORVASC) TAB PO SCH (09:00)
--- NOTE | 2020-12-10 10:12 | Diagnostic Imaging Report ---
PROCEDURE: MR imaging right lower extremity with and without contrast. TECHNIQUE: Multiplanar, multisequence pre and post contrast-enhanced MR imaging of the right lower extremity was accomplished. INDICATION: Marked soft tissue swelling, diabetes, osteomyelitis. COMPARISON: Radiographs from 12/08/2020. FINDINGS: No acute fracture is seen in the right forefoot. Alignment appears normal. No cortical erosion or defect is seen. There are no findings of osteomyelitis. There are moderate degenerative changes in the midfoot and mild degenerative changes in the toes. There is marked diffuse enhancing edema in the dorsal forefoot. No rim-enhancing fluid collection is seen. There is no tenosynovitis. There is generalized muscular atrophy. There is skin thickening and enhancement at the dorsal aspect of the first and second toes and of the other toes to a lesser degree. There is motion artifact on multiple sequences. IMPRESSION: 1. Marked cellulitis in the dorsal aspect of the right forefoot. No rim-enhancing fluid collection or evidence of osteomyelitis is seen. 2. Marked irregular skin thickening at the dorsal foot, particularly at the first and second toes. Dictated by: Dictated on workstation # [id number]
--- NOTE | 2020-12-10 10:14 | Diagnostic Imaging Report ---
PROCEDURE: MRI left lower extremity with and without contrast. TECHNIQUE: Multiplanar, multisequence pre and post contrast-enhanced MRI of the left lower extremity was accomplished. INDICATION: Possible osteomyelitis in the left foot. Marked foot swelling with history of diabetes. COMPARISON: Radiographs from 12/08/2020. FINDINGS: No acute fracture is seen in the left forefoot. Alignment is normal. There is no joint effusion. Joint spaces are preserved. The previously questionable erosion at the fourth metatarsal head is not evident on MRI and there is no evidence of osteomyelitis seen in the imaged forefoot. There is moderate edema and skin thickening about the forefoot, dorsal more than plantar. No rim-enhancing fluid collection is present. There is irregular skin thickening at the dorsal aspect of the first, second, and third toes with mild enhancement. There is marked muscular atrophy. There is no tenosynovitis. There is motion artifact on some sequences. IMPRESSION: 1. Moderate soft tissue edema in the left forefoot with no rim-enhancing fluid collection and no evidence of osteomyelitis. 2. Skin thickening about the forefoot, most pronounced at the dorsal aspect of the first through third toes. Dictated by: Dictated on workstation # [id number]
[2020-12-10 11:28] VITALS: BP 180/86
--- NOTE | 2020-12-10 12:45 | Progress Note ---
Subjective Subjective/Events-last exam Patient states that he is feeling pretty good. Nervous about MRI. Tolerating PO diet. Has not been up walking around. Denies any pain. Review of Systems Pulmonary: No Dyspnea, No Cough Cardiovascular: Edema; No: Chest Pain, Palpitations Gastrointestinal: No: Nausea, Vomiting, Abdominal Pain, Diarrhea, Constipation Neurological: Weakness, Incoordination Focused Exam Lactate Level 12/08/20 13:53: Lactic Acid Level 1.71 Objective Exam Last Set of Vital Signs Vital Signs Date Time Temp Pulse Resp B/P (MAP) Pulse Ox O2 Delivery O2 Flow Rate FiO2 12/10/20 11:28 37.3 75 20 180/86 (117) 95 Room Air Capillary Refill : Less Than 3 Seconds I&O Intake and Output 12/10/20 00:00 Intake Total 2480 ml Output Total 4600 ml Balance -2120 ml Intake Oral 1360 ml IV Total 1120 ml Output Urine Total 4600 ml General: Alert, Oriented X3, Cooperative, No Acute Distress Lungs: Clear to Auscultation, Normal Air Movement Heart: Regular Rate, No Murmurs Abdomen: Normal Bowel Sounds, Soft, No Tenderness, No Masses Skin: Other (Thickened and peeling skin to knee, 1+ pitting edema with multiple wounds and fissures, ) Neuro: Normal Speech, Sensation Intact, Cranial Nerves 3-12 NL Results/Procedures Lab Laboratory Tests 12/09/20 15:32: Glucometer 196H 12/09/20 21:59: Glucometer 168H 12/10/20 03:20: White Blood Count 10.1, Red Blood Count 3.55L, Hemoglobin 10.5L, Hematocrit 32L, Mean Corpuscular Volume 90, Mean Corpuscular Hemoglobin 30, Mean Corpuscular Hemoglobin Concent 33, Red Cell Distribution Width 13.7, Platelet Count 222, Mean Platelet Volume 9.4, Immature Granulocyte % (Auto) 1, Neutrophils (%) (Auto) 71, Lymphocytes (%) (Auto) 16, Monocytes (%) (Auto) 8, Eosinophils (%) (Auto) 4, Basophils (%) (Auto) 1, Neutrophils # (Auto) 7.2, Lymphocytes # (Auto) 1.7, Monocytes # (Auto) 0.8, Eosinophils # (Auto) 0.4H, Basophils # (Auto) 0.1, Immature Granulocyte # (Auto) 0.1, Sodium Level 140, Potassium Level 3.3L, Chloride Level 106, Carbon Dioxide Level 23, Anion Gap 11, Blood Urea Nitrogen 16, Creatinine 1.32H, Estimat Glomerular Filtration Rate 54, BUN/Creatinine Ratio 12, Glucose Level 143H, Calcium Level 8.4L, Vancomycin Level Trough 20.7H 12/10/20 11:29: Glucometer 177H Microbiology 12/08/20 Blood Culture - Preliminary, Resulted No growth Radiology Date of Exam:12/08/20 FOOT, BILATERAL, 2 VIEWS HISTORY: Bilateral feet wounds. COMPARISON: None. TECHNIQUE: Two views of the bilateral feet. FINDINGS: Right foot: There is marked soft tissue swelling about the right foot. There is diffuse osteopenia. Osteopenia appears marked at the fourth and fifth metatarsal heads. No definite cortical erosion is seen. No fracture is seen. Left foot: There is marked soft tissue swelling about the left foot as well, particularly at the dorsum of the forefoot. There is generalized osteopenia, particularly at the metatarsal heads. Questionable erosive changes at the fourth metatarsal head. No fracture is seen. Alignment appears normal. IMPRESSION: 1. Marked soft tissue swelling in the feet bilaterally with diffuse osteopenia. Suspect erosive changes at the fourth metatarsal head which would be concerning for osteomyelitis. MRI would be more sensitive to evaluate for osteomyelitis in the bilateral feet. Dictated by: Dictated on workstation # [id number] Dict: 12/08/20 1507 Trans: 12/08/20 1533 [id number] [id number] Interpreted by: LION SHOOK MD Electronically signed by: LION SHOOK MD 12/08/20 1533 Assessment/Plan Assessment/Plan (1) Cellulitis of both feet Status: Acute Assessment & Plan: - Started on Vanc/Zosyn D2, cultures pending, elevate LE 12/10: Vanc/Zosyn D3, MRI results pending, Wound care managing wounds (2) Lymphedema due to chronic inflammation Status: Chronic (3) Uncontrolled diabetes mellitus Status: Chronic Assessment & Plan: - A1c pending, DM nurse education, SSI, Accucheck AC/HS, ADA diet 12/10: A1c 5.5, Continue SSI/Accuchecks Qualifiers: Qualified Codes: E11.65 - Type 2 diabetes mellitus with hyperglycemia (4) Insulin dependent diabetes mellitus with peripheral circulatory complication Status: Chronic (5) HTN (hypertension) Status: Chronic Assessment & Plan: - Restart home meds Qualifiers: Qualified Codes: I10 - Essential (primary) hypertension (6) Normocytic anemia Status: Acute Assessment & Plan: - Will get Hemoccult (7) DVT prophylaxis Status: Acute Assessment & Plan: - NELSON Julio MD Dec 10, 2020 12:45
[2020-12-10 15:49] VITALS: BP 150/74
[2020-12-10 20:00] VITALS: BP 120/60
[2020-12-10 21:06] VITALS: BP 165/77
[2020-12-11] VITALS: BP 147/70
[2020-12-11 04:00] VITALS: BP 186/86
[2020-12-11 04:57] VITALS: BP 163/80
[2020-12-11] MEDS: PIPERACILLIN/TAZO 4.5 GM/NS 100 ML IV SCH ×4 (04:58→13:33)
[2020-12-11] MEDS: VANCOMYCIN 1250 MG/NS 250 ML IVPB IV SCH ×2 (04:58)
[2020-12-11 05:17] LABS: BASOPHILS # (AUTO) 0.1 10^3/uL (0.0-0.1); BASOPHILS % (AUTO) 1 % (0-10); EOSINOPHILS # (AUTO) 0.7 10^3/uL (0.0-0.3); EOSINOPHILS % (AUTO) 7 % (0-10); HEMATOCRIT 34 % (40-54); HEMOGLOBIN 11.3 g/dL (13.3-17.7); LYMPHOCYTES # (AUTO) 2.1 10^3/uL (1.0-4.0); LYMPHOCYTES % (AUTO) 21 % (12-44); MEAN CORPUSCULAR HEMOGLOBIN 30 pg (25-34); MEAN CORPUSCULAR HGB CONC 33 g/dL (32-36); MEAN CORPUSCULAR VOLUME 90 fL (80-99); MEAN PLATELET VOLUME 9.8 fL (9.0-12.2); MONOCYTES # (AUTO) 0.8 10^3/uL (0.0-1.0); MONOCYTES % (AUTO) 8 % (0-12); NEUTROPHILS # (AUTO) 6.3 10^3/uL (1.8-7.8); NEUTROPHILS % (AUTO) 63 % (42-75); PLATELET COUNT 244 10^3/uL (130-400)
[2020-12-11 05:29] LABS: CALCIUM 8.8 MG/DL (8.5-10.1); CREATININE SERUM 1.36 MG/DL (0.60-1.30); POTASSIUM 4.1 MMOL/L (3.6-5.0)
[2020-12-11] MEDS: inSUlin ASPART (NovoLOG) 1 UNIT/0.01 ML (CHARGE PER UNIT) SC SCH ×2 (05:59→12:08)
--- NOTE | 2020-12-11 07:26 | Progress Note - Surgery ---
CHANELL RAMIREZ MED STUDENT 12/11/20 0726: Subjective Date Seen by a Provider: Dec 11, 2020 Time Seen by a Provider: 06:50 Subjective/Events-last exam Rhett states no current LE pain, scarcely any pain yesterday. FOBT done d/t anemia was positive; Rhett says he occasionally has dark stools, but has not paid attention to it and cannot estimate how long or how often. No bloody stools. States he has never had an endoscopy, will think about whether he would allow that. Rhett denies fever, chills, chest pain, SOB, abdominal pain, rash, constipation, diarrhea, and nausea. Focused Exam Lactate Level 12/08/20 13:53: Lactic Acid Level 1.71 Objective Exam Vital Signs Date Time Temp Pulse Resp B/P (MAP) Pulse Ox O2 Delivery O2 Flow Rate FiO2 12/11/20 04:57 163/80 (107) 12/11/20 04:00 36.2 61 18 186/86 (119) 95 Room Air 12/11/20 00:00 36.5 61 18 147/70 (95) 90 Room Air 12/10/20 21:06 165/77 (106) 12/10/20 21:00 Room Air 12/10/20 20:00 37.0 65 18 120/60 (80) 96 Room Air 12/10/20 15:49 37.5 87 18 150/74 (99) 96 Room Air 12/10/20 11:28 37.3 75 20 180/86 (117) 95 Room Air 12/10/20 08:19 36.6 70 20 184/86 (118) 96 Room Air 12/10/20 08:00 Room Air I & O 12/11/20 07:00 Intake Total 1960 ml Output Total 3225 ml Balance -1265 ml Capillary Refill : Less Than 3 Seconds General Appearance: No Apparent Distress, Obese HEENT: PERRL/EOMI Neck: Normal Inspection; No JVD Respiratory: Chest Non Tender, No Accessory Muscle Use, No Respiratory Distress; No Crackles; Wheezing (faint expiratory) Cardiovascular: Regular Rate, Rhythm, No JVD Gastrointestinal: non tender, soft, no organomegaly Extremity: Swelling, Other (BL LE scaling and edema to the knees. Left and right feet wrapped in gauze. skin of dorsal right toes is thickened and appears coarse. ) Skin: Warm/Dry Results Lab Laboratory Tests 12/10/20 11:29: Glucometer 177H 12/10/20 14:45: Stool Occult Blood Immunoassay POSITIVEH 12/10/20 15:30: Glucometer 208H 12/10/20 20:38: Glucometer 170H 12/11/20 05:05: White Blood Count 10.0, Red Blood Count 3.82L, Hemoglobin 11.3L, Hematocrit 34L, Mean Corpuscular Volume 90, Mean Corpuscular Hemoglobin 30, Mean Corpuscular Hemoglobin Concent 33, Red Cell Distribution Width 13.8, Platelet Count 244, Mean Platelet Volume 9.8, Immature Granulocyte % (Auto) 1, Neutrophils (%) (Auto) 63, Lymphocytes (%) (Auto) 21, Monocytes (%) (Auto) 8, Eosinophils (%) (Auto) 7, Basophils (%) (Auto) 1, Neutrophils # (Auto) 6.3, Lymphocytes # (Auto) 2.1, Monocytes # (Auto) 0.8, Eosinophils # (Auto) 0.7H, Basophils # (Auto) 0.1, Immature Granulocyte # (Auto) 0.1, Sodium Level 138, Potassium Level 4.1, Chloride Level 107, Carbon Dioxide Level 20L, Anion Gap 11, Blood Urea Nitrogen 18, Creatinine 1.36H, Estimat Glomerular Filtration Rate 52, BUN/Creatinine Ratio 13, Glucose Level 130H, Calcium Level 8.8 Microbiology 12/08/20 Blood Culture - Preliminary, Resulted No growth Assessment/Plan Assessment/Plan Assessment/Plan B/L Lymphedema Laceration of left foot B/L ulcers both feet MRI does not show any Osteomyelitis of Left foot mild anemia with + FOBT, no prior colonoscopy: nonemergent EGD and colonoscopy if patient consents, can be done outpatient if needed due to patient's hemodynamic stability Hypokalemia - resolved. Continue LR. Plan continue local wound care (Wound Team consulted), IV fluids, IV ABX. Does not appear at this time that pt will need an amputation per MRI; will wait to se e if he will need any surgical debridement. JOSE C TONEY DO 12/11/20 1102: Subjective Time Seen by a Provider: 10:49 Subjective/Events-last exam Pt seen and examined, no new complaints. Would like to go home and f/u with wound care clinic. Review of Systems General: Fatigue Pulmonary: No Dyspnea, No Cough Cardiovascular: No: Chest Pain, Palpitations Gastrointestinal: No: Nausea, Vomiting, Abdominal Pain Musculoskeletal: leg pain Objective Exam General Appearance: No Apparent Distress HEENT: PERRL/EOMI Respiratory: Chest Non Tender, No Accessory Muscle Use, No Respiratory Distress; No Crackles; Wheezing (faint expiratory) Cardiovascular: Regular Rate, Rhythm, No Murmur Gastrointestinal: non tender, soft Extremity: Swelling, Other (BL LE scaling and edema to the knees. Left and right feet wrapped in gauze. skin of dorsal right toes is thickened and appears coarse. ) Assessment/Plan Assessment/Plan Assessment/Plan B/L Lymphedema Laceration of left foot B/L ulcers both feet MRI does not show any Osteomyelitis of Left foot mild anemia with + FOBT, no prior colonoscopy: nonemergent EGD and colonoscopy if patient consents, can be done outpatient if needed due to patient's hemodynamic stability Hypokalemia - resolved. Continue LR. Plan continue local wound care as outpt. Ok to go home from surgery standpoint. Supervisory-Addendum Brief Verification & Attestation Participated in pt care: history, MDM, physical Personally performed: exam, history, MDM Care discussed with: Medical Student Procedures: n/a Verification and Attestation of Medical Student E/M Service A medical student performed and documented this service. I then reviewed and verified all information documented by the medical student and made modifications to such information, when appropriate. I personally performed a physical exam, medical decision making and then discussed any differences between the notes and made revisions as necessary to create one note. Jose C Toney , 12/11/20 , 11:01 CHANELL RAMIREZ MED STUDENT Dec 11, 2020 07:26 JOSE C TONEY DO Dec 11, 2020 11:02
[2020-12-11 08:05] VITALS: BP 144/70
[2020-12-11] MEDS: lisINopril 20 MG (PRINIVIL) TABLET PO SCH (08:25)
[2020-12-11] MEDS: amLODIPine 10 MG (NORVASC) TAB PO SCH (08:25)
[2020-12-11 11:59] VITALS: BP 166/85
--- NOTE | 2020-12-11 12:03 | Discharge Summary ---
Diagnosis/Chief Complaint Date of Admission Dec 08, 2020 at 14:47 Date of Discharge Discharge Diagnosis Problems/Diagnosis: (1) Cellulitis of both feet Assessment & Plan: - Started on Vanc/Zosyn D2, cultures pending, elevate LE 12/10: Vanc/Zosyn D3, MRI results pending, Wound care managing wounds Status: Acute (2) Lymphedema due to chronic inflammation Status: Chronic (3) Uncontrolled diabetes mellitus Assessment & Plan: - A1c pending, DM nurse education, SSI, Accucheck AC/HS, ADA diet 12/10: A1c 5.5, Continue SSI/Accuchecks Qualifiers: Qualified Codes: E11.65 - Type 2 diabetes mellitus with hyperglycemia Status: Chronic (4) 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 Patient states that he has had Kinsey boots on his legs bilaterally for around 6 weeks and has not had them changed due to worries about Covid and him switching providers. States that his DM has been well controlled but not sure what his last A1c was. States that several week ago he started having pain in his foot with ambulation but then the pain stopped and he did not seek care. Has not been seen in a wound care clinic in a long time was following with Balbir Rodrigues for Kinsey boots. Discharge Summary-Simple/Stand Consultations Discharge Physical Examination Allergies: Coded Allergies: No Allergy Information Available (Unverified , 12/08/20) Vitals & I&Os Vital Sign - Last 12Hours Date Time Temp Pulse Resp B/P (MAP) Pulse Ox O2 Delivery O2 Flow Rate FiO2 12/11/20 10:39 Room Air 12/11/20 08:05 36.2 57 18 144/70 (94) 93 Intake and Output 12/11/20 00:00 Intake Total 1560 ml Output Total 2600 ml Balance -1040 ml Hospital Course See final discharge diagnosis. Radiology Reviewed Date of Exam:12/08/20 FOOT, BILATERAL, 2 VIEWS HISTORY: Bilateral feet wounds. COMPARISON: None. TECHNIQUE: Two views of the bilateral feet. FINDINGS: Right foot: There is marked soft tissue swelling about the right foot. There is diffuse osteopenia. Osteopenia appears marked at the fourth and fifth metatarsal heads. No definite cortical erosion is seen. No fracture is seen. Left foot: There is marked soft tissue swelling about the left foot as well, particularly at the dorsum of the forefoot. There is generalized osteopenia, particularly at the metatarsal heads. Questionable erosive changes at the fourth metatarsal head. No fracture is seen. Alignment appears normal. IMPRESSION: 1. Marked soft tissue swelling in the feet bilaterally with diffuse osteopenia. Suspect erosive changes at the fourth metatarsal head which would be concerning for osteomyelitis. MRI would be more sensitive to evaluate for osteomyelitis in the bilateral feet. Dictated by: Dictated on workstation # [id number] Dict: 12/08/20 1507 Trans: 12/08/20 1533 [id number] Interpreted by: LION SHOOK MD Electronically signed by: LION SHOOK MD 12/08/20 1533 Discharge Instructions to patient/family Please see electronic discharge instructions given to patient. Discharge Medications Reviewed and agree with Discharge Medication list on patient's Discharge Instruction sheet NELSON HERNÁNDEZ MD Dec 11, 2020 12:03
[2020-12-11] MEDS ORDERED: HYDR-3922 PO (12:05)
[2020-12-11] MEDS ORDERED: AMOX-358 PO (12:05)
--- NOTE | 2020-12-11 12:07 | Discharge Summary ---
Discharge [facility] Reconcile Patient Problems Problems Reviewed?: Yes Discharge Medications New, Converted or Re-Newed RX: Transmitted to Pharmacy New Medications: Amoxicillin/Potassium Clav (Augmentin 875-125 Tablet) 1 Each Tablet 1 EACH PO BID, #20 TAB Hydralazine HCl (Hydralazine HCl) 10 Mg Tablet 10 MG PO BID, #60 TAB Continued Medications: Amlodipine Besylate (Amlodipine Besylate) 10 Mg Tablet 10 MG PO DAILY, TAB LAST FILLED 06-23-2020 #90 Ascorbic Acid (Vitamin C) 500 Mg Tablet 500 MG PO DAILY, TAB Insulin Regular, Human (Novolin R) 100 Unit/1 Ml Vial 10-15 UNIT IJ AC, VIAL Lisinopril (Lisinopril) 20 Mg Tablet 20 MG PO DAILY, TAB LAST FILLED 06-23-2020 #90 [place]-3 Fatty Acids/Fish Oil (Fish Oil 1,200 mg Softgel) 1 Each Capsule 1 EACH PO DAILY, CAP Discontinued Medications: Ibuprofen (Ibuprofen) 200 Mg Capsule 800 MG PO BID, CAP TAKES 4 (200MG) TABS Naproxen Sodium (Aleve) 220 Mg Capsule 440 MG PO BID, CAP TAKES 2 (220MG) TABS Patient Instructions Goal/Follow Up Appt: Needs to establish care with bella Liu 1 week Referral to Wound clinic at the hospital Activity & Diet Discharge Diet: ADA Diet, Cardiac Diet Orders-Post D/C & Referrals Wound Care referral NELSON HERNÁNDEZ MD Dec 11, 2020 12:07
[2020-12-11 15:15] VITALS: BP 166/85
[2020-12-12] MEDS ORDERED: TROUGH ORDER-PHARMACY XX ONE (04:00)
== END 2020-12-11 15:15 | disposition home or self-care (01) | DRG 603 ==
LOC: EDUNIT# 13:30 → ER 13:33 → 4TH 14:47
PROVIDERS: ADMIT Family Medicine; ATTEND Family Medicine
DX: L03.116 Cellulitis of left lower limb (principal); L97.219 Non-pressure chronic ulcer of right calf with unspecified severity; L97.419 Non-pressure chronic ulcer of right heel and midfoot with unspecified severity; L03.115 Cellulitis of right lower limb; E11.51 Type 2 diabetes mellitus with diabetic peripheral angiopathy without gangrene; L89.629 Pressure ulcer of left heel, unspecified stage; L89.890 Pressure ulcer of other site, unstageable; S91.312A Laceration without foreign body, left foot, initial encounter; E11.65 Type 2 diabetes mellitus with hyperglycemia; L83 Acanthosis nigricans; I89.0 Lymphedema, not elsewhere classified; I87.8 Other specified disorders of veins; Z91.19 Patient's noncompliance with other medical treatment and regimen; F17.210 Nicotine dependence, cigarettes, uncomplicated; I10 Essential (primary) hypertension; E66.9 Obesity, unspecified; Z68.28 Body mass index [BMI] 28.0-28.9, adult; D64.9 Anemia, unspecified; E87.6 Hypokalemia; R19.5 Other fecal abnormalities; Z83.3 Family history of diabetes mellitus
CPT/HCPCS: 36410; 36415; 71045; 73720; 76937; 80048; 80053; 80202; 81000; 82274; 82962; 83036; 83605; 83880; 85025; 85610; 87040; 96374

== ENCOUNTER → 2020-12-15 | Outpatient (CLI) | payer MEDICARE ==
[~2020-12-15] MED LIST changes: +AMLO-251 PO; +AMOX-358 PO; +ASCO500T17 PO; -HOLD METFORMIN - RECEIVED CONTRAST 20 ML VIAL IV SCH; +HYDR-3922 PO; +IBUP-2185 PO; +INSU100V31 IJ; -IOHEXOL 350 MG/ML 100 ML (OMNIPAQUE 350) VIAL IV ONE; +LISI20TA26 PO; +NAPR220C11 PO; -NS 100 ML (IVPB) BAG IV ONE; +OMEG-109 PO
== END ==
LOC: WOUNDCARE 08:40
PROVIDERS: ATTEND Surgery
DX: L89.893 Pressure ulcer of other site, stage 3 (principal); L89.623 Pressure ulcer of left heel, stage 3; I87.331 Chronic venous hypertension (idiopathic) with ulcer and inflammation of right lower extremity; L97.212 Non-pressure chronic ulcer of right calf with fat layer exposed; I89.0 Lymphedema, not elsewhere classified; E11.621 Type 2 diabetes mellitus with foot ulcer
CPT/HCPCS: A6197; G0463; 99215

== ENCOUNTER → 2020-12-17 | Outpatient (CLI) | payer MEDICARE | LOC: WOUNDCARE 13:13 | PROVIDERS: ATTEND Surgery | DX: I96 Gangrene, not elsewhere classified (principal); L89.893 Pressure ulcer of other site, stage 3; L89.623 Pressure ulcer of left heel, stage 3; I87.331 Chronic venous hypertension (idiopathic) with ulcer and inflammation of right lower extremity; L97.212 Non-pressure chronic ulcer of right calf with fat layer exposed; I89.0 Lymphedema, not elsewhere classified; E11.621 Type 2 diabetes mellitus with foot ulcer | CPT/HCPCS: 99212 ==

== ENCOUNTER → 2020-12-24 | Outpatient (CLI) | payer MEDICARE | LOC: WOUNDCARE 14:05 | PROVIDERS: ATTEND Surgery | DX: E11.52 Type 2 diabetes mellitus with diabetic peripheral angiopathy with gangrene (principal); E11.621 Type 2 diabetes mellitus with foot ulcer; I96 Gangrene, not elsewhere classified; I87.331 Chronic venous hypertension (idiopathic) with ulcer and inflammation of right lower extremity; L89.893 Pressure ulcer of other site, stage 3; L89.623 Pressure ulcer of left heel, stage 3; L97.212 Non-pressure chronic ulcer of right calf with fat layer exposed; I89.0 Lymphedema, not elsewhere classified | CPT/HCPCS: 11042; G0463 ==

== ENCOUNTER → 2020-12-31 | Outpatient (CLI) | payer MEDICARE | LOC: WOUNDCARE 12:51 | PROVIDERS: ATTEND Surgery | DX: I96 Gangrene, not elsewhere classified (principal); L89.893 Pressure ulcer of other site, stage 3; L89.623 Pressure ulcer of left heel, stage 3; I87.331 Chronic venous hypertension (idiopathic) with ulcer and inflammation of right lower extremity; I89.0 Lymphedema, not elsewhere classified; E11.621 Type 2 diabetes mellitus with foot ulcer | CPT/HCPCS: 11042; G0463 ==

== ENCOUNTER → 2021-01-14 | Outpatient (CLI) | payer MEDICARE | LOC: WOUNDCARE 12:49 | PROVIDERS: ATTEND Surgery | DX: I96 Gangrene, not elsewhere classified (principal); L89.623 Pressure ulcer of left heel, stage 3; I89.0 Lymphedema, not elsewhere classified; E11.621 Type 2 diabetes mellitus with foot ulcer | CPT/HCPCS: 11042; G0463 ==

== ENCOUNTER → 2021-01-21 | Outpatient (CLI) | payer MEDICARE | LOC: WOUNDCARE 14:31 | PROVIDERS: ATTEND Surgery | DX: I96 Gangrene, not elsewhere classified (principal); L89.623 Pressure ulcer of left heel, stage 3; I89.0 Lymphedema, not elsewhere classified; E11.621 Type 2 diabetes mellitus with foot ulcer | CPT/HCPCS: 11042; G0463 ==